=== PATIENT | male | born 2000 | race Caucasian/White ===

== ENCOUNTER 2024-11-13 13:15 | Emergency (ER) | payer BC ==
[~2024-11-13] VITALS: Ht 182.9 cm; Wt 86.2 kg
[2024-11-13 13:22] VITALS: TEMP 98.1
[2024-11-13 14:52] LABS: APPEARANCE,URINE CLEAR (CLEAR); BLOOD, URINE NEGATIVE Ery/uL (NEGATIVE); LEUKOCYTE ESTERASE ,URINE NEGATIVE (NEGATIVE); NITRITE, URINE NEGATIVE (NEGATIVE); UGLUCOSE NEGATIVE (NEGATIVE)
[2024-11-13 15:20] LABS: PLATELET COUNT (AUTO) 270 K/uL (150-450); RED BLOOD CELL COUNT(AUTO) 5.48 MIL/uL (4.5-6.0); RED CELL DISTRIBUTION WIDTH 13.7 % (11.5-15.0); WHITE BLOOD COUNT (AUTO) 9.4 K/uL (4.3-11.0)
[2024-11-13 15:34] LABS: CALCIUM, SERUM 9.7 mg/dL (8.5-10.1); CREATININE 0.9 mg/dL (0.6-1.3); SODIUM SERUM 142.0 mmol/L (136-145); UREA NITROGEN, BLOOD 10.0 mg/dL (7-18)
[2024-11-13] MEDS ORDERED: IBUP-1490 PO (18:08)
[2024-11-13 18:29] VITALS: BP 125/78; O2SAT 98
[2024-11-16 11:07] LABS: CHLAMYDIA TRACHOMATIS NAA Negative (Negative); NEISSERIA GONORRHOEAE NAA Negative (Negative)
== END 2024-11-13 18:28 | disposition home or self-care (01) ==
LOC: ER 13:15
DX: R10.30 Lower abdominal pain, unspecified (principal); N50.812 Left testicular pain; R10.84 Generalized abdominal pain; Z88.0 Allergy status to penicillin; Z87.438 Personal history of other diseases of male genital organs; Z87.448 Personal history of other diseases of urinary system; Z88.1 Allergy status to other antibiotic agents
CPT/HCPCS: 36415; 76770-TC; 76870-TC; 80048-TC; 85025-TC; 87086-TC; 87491; 87591

== ENCOUNTER 2024-11-20 13:59 | Emergency (ER) | payer BC ==
[~2024-11-20] VITALS: Ht 182.9 cm; Wt 86.2 kg
[~2024-11-20 13:59] MED LIST: IBUP-1490 PO
[2024-11-20 15:23] LABS: APPEARANCE,URINE CLEAR (CLEAR); BLOOD, URINE NEGATIVE Ery/uL (NEGATIVE); LEUKOCYTE ESTERASE ,URINE NEGATIVE (NEGATIVE); NITRITE, URINE NEGATIVE (NEGATIVE); UGLUCOSE NEGATIVE (NEGATIVE)
[2024-11-20 15:45] VITALS: BP 145/80; TEMP 98.7; O2SAT 98
[2024-11-20 15:50] LABS: FREE PSA 0.23 ng/mL (0.00-45); PROSTATE SPECIFIC ANTIGEN SCR 1.24 ng/mL (0.00-4.00)
== END 2024-11-20 15:45 | disposition home or self-care (01) ==
LOC: ER 14:12
DX: N50.812 Left testicular pain (principal); R10.2 Pelvic and perineal pain; Z88.0 Allergy status to penicillin; Z87.448 Personal history of other diseases of urinary system; Z88.8 Allergy status to other drugs, medicaments and biological substances
CPT/HCPCS: 36415; 76870-TC; 84153-TC; 84154-TC